=== PATIENT | female | born 1950 | race Caucasian/White ===

== ENCOUNTER 2018-01-13 13:41 | Outpatient (CLI) | payer OTHER ==
[~2018-01-13 13:41] MED LIST: CEFADROXIL500 MG PO; FLOVENT 220MCG7.9 GM IH; GLIMEPIRIDE1 MG PO; PERCOCET 5/321 UDTAB PO; VASOTEC10 MG PO; XARELTO10 MG PO
== END 2018-01-13 13:45 | disposition home or self-care (01) ==
LOC: LAB 13:41
DX: E11.69 Type 2 diabetes mellitus with other specified complication (principal); K75.89 Other specified inflammatory liver diseases

== ENCOUNTER 2018-01-13 14:32 | Outpatient (CLI) | payer OTHER | END 2018-01-13 14:55 | disposition home or self-care (01) | LOC: MAMO-SONO 14:32 | DX: Z12.31 Encounter for screening mammogram for malignant neoplasm of breast (principal); Z80.3 Family history of malignant neoplasm of breast; F17.200 Nicotine dependence, unspecified, uncomplicated ==

== ENCOUNTER 2018-01-13 16:09 | Outpatient (CLI) | payer OTHER | END 2018-01-13 16:18 | disposition home or self-care (01) | LOC: RAD 16:09 | DX: I10 Essential (primary) hypertension (principal); F17.200 Nicotine dependence, unspecified, uncomplicated; E11.69 Type 2 diabetes mellitus with other specified complication ==

== ENCOUNTER 2018-01-30 13:09 | Emergency (ER) | payer OTHER ==
[~2018-01-30] VITALS: Ht 167.6 cm; Wt 72.6 kg
[2018-01-30] MEDS ORDERED: AMARYL (13:53)
[2018-01-30] MEDS ORDERED: NEURONTIN800 MG (13:58)
[2018-01-30] MEDS ORDERED: PREVACID30 MG (13:58)
[2018-01-30] MEDS ORDERED: PROAIR HFA8.5 GM (13:58)
[2018-01-30] MEDS ORDERED: MIRTAZAPINE30 MG (13:59)
[2018-01-30] MEDS ORDERED: VOLTAREN100 GM (14:00)
[2018-01-30] MEDS ORDERED: DICY20TA (14:00)
[2018-01-30] MEDS ORDERED: LOTRISONE CREAM45 GM (14:01)
== END 2018-01-30 17:28 | disposition home or self-care (01) ==
LOC: ER 13:09
DX: M54.5 Low back pain (principal)

== ENCOUNTER 2018-06-14 12:46 | Outpatient (CLI) | payer OTHER ==
[~2018-06-14 12:46] MED LIST changes: +AMARYL; +DICY20TA; +LOTRISONE CREAM45 GM; +MIRTAZAPINE30 MG; +NEURONTIN800 MG; +PREVACID30 MG; +PROAIR HFA8.5 GM; +VOLTAREN100 GM
== END 2018-06-14 13:40 | disposition home or self-care (01) ==
LOC: NUCLEAR 12:46
DX: M81.0 Age-related osteoporosis without current pathological fracture (principal)

== ENCOUNTER → 2021-01-19 14:15 | Outpatient (CLI) | payer OTHER | END | disposition home or self-care (01) | LOC: EKG 14:15 | PROVIDERS: ATTEND Family Medicine | DX: I10 Essential (primary) hypertension (principal) ==

== ENCOUNTER 2022-03-13 13:02 | Emergency (ER) | payer OTHER ==
[~2022-03-13] VITALS: Ht 170.2 cm; Wt 72.6 kg
[2022-03-13] MEDS ORDERED: GLIMEPIRIDE1 MG (13:21)
== END 2022-03-13 17:47 | disposition home or self-care (01) ==
LOC: ER 13:02
DX: L03.116 Cellulitis of left lower limb (principal); E11.9 Type 2 diabetes mellitus without complications; Z79.84 Long term (current) use of oral hypoglycemic drugs

== ENCOUNTER 2022-03-24 10:45 | Emergency (ER) | payer OTHER ==
[~2022-03-24] VITALS: Ht 170.2 cm; Wt 90.7 kg
[~2022-03-24 10:45] MED LIST changes: +GLIMEPIRIDE1 MG
== END 2022-03-24 18:02 | disposition home or self-care (01) ==
LOC: ER 10:45
DX: D69.6 Thrombocytopenia, unspecified (principal); R17 Unspecified jaundice